=== PATIENT | female | born 1995 | race Caucasian/White ===

== ENCOUNTER 2016-08-25 08:51 | Emergency (ER) | payer BC ==
[2016-08-25] MEDS ORDERED: NS 0.9% 1000 ML* 1,000 ML IV ONE (09:24)
[2016-08-25 10:03] LABS: Hematocrit 41 % (35-47); Hemoglobin 13.7 g/dl (12.0-16.0); Mean Corpuscular HGB Conc 34 g/dl (31-36); Mean Corpuscular Hemoglobin 30 pg (27-31); Mean Corpuscular Volume 91 fL (80-97); Mean Platelet Volume 8 um3 (7.4-10.4); Red Blood Count 4.51 10^6/ul (4.0-5.4); Red Cell Distribution Width 13 % (10.5-15); White Blood Count 8.4 10^3/ul (3.5-10.8)
[2016-08-25 10:05] LABS: Urine Bilirubin Negative (Negative); Urine Glucose Negative (Negative); Urine Nitrite Negative (Negative)
[2016-08-25 10:17] LABS: ALT 11 U/L (7-52); AST 15 U/L (13-39); Albumin 4.9 g/dL (3.2-5.2); Alkaline Phosphatase 50 U/L (34-104); Anion Gap 6 mmol/L (2-11); BUN/Creatinine Ratio 19.2 (8-20); Blood Urea Nitrogen 14 mg/dL (6-24); CO2 Carbon Dioxide 25 mmol/L (22-32); Calcium 9.6 mg/dL (8.6-10.3); Chloride 103 mmol/L (101-111); EGFR African American 132.1 (>60); EGFR Non-African American 102.7 (>60); Globulin 2.8 g/dL (2-4); Glucose 90 mg/dL (70-100); Potassium 3.5 mmol/L (3.5-5.0); Sodium 134 mmol/L (133-145); Total Protein 7.7 g/dL (6.4-8.9)
--- NOTE | 2016-08-25 10:21 | ED ---
Syncope/Near Syncope - HPI Summary HPI Summary: Pt here w/ syncope this morning - was watching her boyfriend vomit and this caused her to be "queesy" - vision went dark and "passed out". Was able to recover fairly well and when she did, they decided to take him to the ED. As she and her boyfriend were walking out the door, she "passed out" again and landed in the snow. She was able to get up again and they decided it would not be safe for either of them to drive, so they headed back inside to call an ambulance. As they did this, the pt felt disoriented and hit herself in the face with the door. She has a small cut on her Lt eyelid. Denies change in vision, nausea, neck pain, GEORGES, dental/oral trauma, dizziness, numbness, weakness , N/V/D. Admits she hasn't had anything to eat or drink this morning. She has been dealing w/ dizziness the past few months and this has been worked up by her ENT - recent CT scan shows retention cyst but "nothing significant". She was advised to try nasal spray for a distal polyp but it was decided this was from her hormone PO control. control was switched by PCP and she is supposed to f/u to decide if she is able to tolerate this form of control any longer. She is taking this to prevent and help with acne. Denies h/o heavy vaginal bleeding, irregular periods, ovarian cysts. LMP was around Kristine. Mom has a h/o developing clots in her arm when she was on hormone based control when she was younger. Pt did travel to [place] recently. Denies smoking, h/o cancer, clots herself. URI last week w/ diarrhea - no caffeine. - History Of Current Complaint Chief Complaint: EDSyncope Time Seen by Provider: 08/25/16 09:03 Hx Obtained From: Patient, Family/Cow Buyer - mom - Allergies/Home Medications Allergies/Adverse Reactions: Allergies Allergy/AdvReac Type Severity Reaction Status Date / Time No Known Allergies Allergy Verified 02/19/16 09:40 PMH/Surg Hx/FS Hx/Imm Hx Previously Healthy: Yes Endocrine/Hematology History: Denies: Hx Anticoagulant Therapy, Hx Blood Disorders, Hx Thyroid Disease, Hx Unexplained Bleeding, Hx Coagulopothy Cardiovascular History: Reports: Other Cardiovascular Problems/Disorders - "dizziness" past few months Denies: Hx Congenital Heart Disease Respiratory History: Denies: Hx Pulmonary Embolism GI History: Denies: Hx Gastrointestinal Bleed Musculoskeletal History: Reports: Hx Bursitis - RIGHT SHOULDER -EXERCISES Sensory History: Denies: Hx Contacts or Glasses, Hx Hearing Aid Opthamlomology History: Denies: Hx Contacts or Glasses Psychiatric History: Reports: Hx Anxiety - no meds, Hx Depression - no meds Denies: Hx Eating Disorder - Surgical History Surgery Procedure, Year, and Place: WISDOM TEETH EXTRACTION 2013 -DR. GILBERT Gonzales Anesthesia Reactions: No Infectious Disease History: No Infectious Disease History: Denies: Traveled Outside the [place] in Last 30 Days - Family History Known Family History: Positive: Cardiac Disease, Hypertension, Other - cancer, coagulopathy - Social History Lives: With Family Alcohol Use: Occasionally - not recently Hx Substance Use: No Substance Use Type: Reports: None. Denies: Excessive Caffeine Hx Tobacco Use: No Smoking Status (MU): Never Smoked Tobacco Review of Systems Positive: Fatigue. Negative: Fever, Chills Negative: Photophobia, Blurred Vision, Diplopia, Drainage, Erythema ENT: Other - see HPI Negative: Dental Pain Negative: Chest Pain Negative: Shortness Of Breath, Cough Positive: Nausea - see HPI. Negative: Abdominal Pain, Vomiting, Diarrhea Positive: no symptoms reported Negative: Arthralgia, Myalgia Skin: Other - see HPI Neurological: Negative Psychological: Normal All Other Systems Reviewed And Are Negative: Yes Physical Exam Triage Information Reviewed: Yes Vital Signs On Initial Exam: Initial Vitals Temp Pulse Resp BP Pulse Ox 98.6 F 75 20 104/62 100 08/25/16 08:54 08/25/16 08:54 08/25/16 08:54 08/25/16 08:54 08/25/16 08:54 Vital Signs Reviewed: Yes Appearance: Positive: Well-Appearing, No Pain Distress, Thin Skin: Positive: Warm, Dry - o.25cm abrasion/laceration over Lt superior palpebra - no active bleeding, mild surrounding ecchymosis w/ edema Head/Face: Positive: Normal Head/Face Inspection - sinuses NTTP; no asymmetry, no laxity w/ palpation Eyes: Positive: Normal, EOMI - no pain ellicited w/ eye movements, CANDICE, Conjunctiva Clear ENT: Positive: Hearing grossly normal, Pharynx normal, TMs normal - no hemotympanum. Negative: Nasal congestion - mucosal polyp inside Rt nares, Nasal drainage Dental: Negative: Dental Fracture @ Neck: Positive: Supple, Nontender Respiratory/Lung Sounds: Positive: Clear to Auscultation, Breath Sounds Present. Negative: Rales, Rhonchi, Stridor, Tracheal Deviation, Wheezes Cardiovascular: Positive: Normal, RRR, Pulses are Symmetrical in both Upper and Lower Extremities, S1, S2 Abdomen Description: Positive: Nontender, Soft. Negative: Pulsatile Mass Bowel Sounds: Positive: Present Musculoskeletal: Positive: Normal, Strength/ROM Intact Neurological: Positive: Normal, Sensory/Motor Intact, Alert, Oriented to Person Place, Time, CN Intact II-III, Reflexes Intact, Normal Gait, Finger to Nose. Negative: Facial Droop, Slurred Speech, Lupillo-[place] Test, Pronator Drift Present Psychiatric: Positive: Normal Procedures - Laceration/Wound Repair 1 Location: face Description: Linear Length, Depth and Shape: 0.25cm x 1mm Betadine Prep?: No - wound and surrounding skin cleaned w/ antiseptic spray and alcohol Laceration/Wound Explored: clean Closure: Skin Adhesive Diagnostics - Vital Signs Vital Signs Temp Pulse Resp BP Pulse Ox 08/25/16 08:54 98.6 F 75 20 104/62 100 - Laboratory Result Diagrams: 08/25/16 09:50 08/25/16 09:50 Lab Statement: Any lab studies that have been ordered have been reviewed, and results considered in the medical decision making process. Re-Evaluation - Re-Evaluation First Eval Change: Improved - s/p iv fluids Course/Dx Course Of Treatment: Pt appears to have had multiple syncopal/near-syncopal episodes this morning d/t vasovagal response in the face of hypoglycemia. She may also have had orthostatic hypotension and she's thin, tall and has a naturally low BP. SHe does not appear to have sustained a major head injury today but does hvae a minor Lt eyelid abrasion/laceration which is alrady showing signs of edema and ecchymosis - suspect this will not cause ocular issues as long as she ices and takes NSAID's - she will also avoid aggravation ( ie. wearing make-up etc). Advised better nutrition and close f/u w/ PCP to monitor sx. Reviewed danger s/sx of when to return to ED. Pt, mom and BF voice understanding and agree w/ plan. - Diagnoses Provider Diagnoses: Syncope, Hypotension, Facial laceration Discharge - Discharge Plan Condition: Stable Disposition: HOME Patient Education Materials: Syncope (ED), Hypotension (ED), Skin Adhesive Care (ED), Facial Laceration (ED) Referrals: Jelly Hart MD [Primary Care Provider] - Additional Instructions: Keep wound clean and dry - you may rinse but do not soak or scrub. Pat dry. Monitor for signs or symptoms of infection. Follow-up with PCP for wound check in 5 days. Your cause of syncope today appears to be vasovagal response in conjunction with low fluid volume from recent illness. It is advised that you stay hydrated , eat balanced meals throughout the day, consume regular or even above normal salt, and transition slowly from lying to sitting to standing to avoid orthostatic hypotension episodes. It is advised that you rest today to allow for recovery from today's events. Although some tests were performed today to asses your symptoms, it is important that you follow-up woth PCP to continue assessing the cause of your dizziness. If you feel better with lifestyle changes mentioned above, pass this along. If not, more investigation needs to be done. *If you develop a headache, change in vision, vomiting, neck pain, chest pain, shortness of breath, numbness, weakness, return to ED
[2016-08-25 12:04] VITALS: BP 107/62
== END 2016-08-25 12:35 | disposition home or self-care (01) ==
LOC: ED 08:51
DX: R55 Syncope and collapse (principal); R42 Dizziness and giddiness; R11.0 Nausea
CPT/HCPCS: 36415; 80053; 81003; 83605; 83735; 84443; 84484; 84702; 85025; 85379; 85610; 85730; 93005; 96360; 99283

== ENCOUNTER 2016-09-24 10:57 | Emergency (ER) | payer BC ==
[2016-09-24 11:11] VITALS: BP 107/74
--- NOTE | 2016-09-24 11:48 | UC ---
Respiratory Complaint HPI - HPI Summary HPI Summary: Started last with nasal congestion. Worsened on Monday and Monday with copious yellow/green mucus and lethargy. Boyfriend is sick with similar symptoms. Possible fever on Monday but none since. Now complaining of sinus pain and dental pain. - History of Current Complaint Chief Complaint: UCRespiratory Stated Complaint: SINUS COMPLAINT Time Seen by Provider: 09/24/16 11:14 Hx Obtained From: Patient Hx Last Menstrual Period: 09/21/16 ?: No Onset/Duration: Gradual Onset, Lasting Weeks Severity Initially: Mild Severity Currently: Moderate Aggravating Factors: Nothing Alleviating Factors: OTC Meds Associated Signs And Symptoms: Positive: Fever, Nasal Congestion, Sinus Discomfort. Negative: Dyspnea, Chills, Pleuritic Chest Pain, Wheezing, Hemoptysis - Allergies/Home Medications Allergies/Adverse Reactions: Allergies Allergy/AdvReac Type Severity Reaction Status Date / Time No Known Allergies Allergy Verified 02/19/16 09:40 Home Medications: Home Medications Eth Estradiol/Drospirenone(NF) [[place] 28(NF)] 1 tab PO 09/24/16 [History] PMH/Surg Hx/FS Hx/Imm Hx Previously Healthy: Yes Endocrine History Of: Denies: Diabetes, Thyroid Disease Cardiovascular History Of: Denies: Cardiac Disorders, Hypertension Respiratory History Of: Denies: COPD, Asthma, Pulmonary Embolism GI/ History Of: Denies: Ulcer, Gastrointestinal Bleed Psychological History Of: Reports: Anxiety - no meds, Depression - no meds Other History Of: Negative For: Anticoagulant Therapy - Surgical History Surgical History: Yes Surgery Procedure, Year, and Place: WISDOM TEETH EXTRACTION 2013 -DR. HUNT, [facility] - Family History Known Family History: Positive: Unknown, Cardiac Disease, Hypertension, Other - cancer, coagulopathy - Social History Occupation: Employed Part-time, Student Alcohol Use: Weekly Substance Use Type: None Smoking Status (MU): Never Smoked Tobacco Review of Systems Constitutional: Negative Skin: Negative Eyes: Negative ENT: Dental Pain, Nasal Discharge Respiratory: Shortness Of Breath - with exertion Cardiovascular: Negative Gastrointestinal: Negative Genitourinary: Negative Motor: Negative Neurovascular: Negative Musculoskeletal: Negative Neurological: Negative Psychological: Negative All Other Systems Reviewed And Are Negative: Yes Physical Exam Triage Information Reviewed: Yes Appearance: Well-Appearing, No Pain Distress, Well-Nourished Vital Signs: Initial Vital Signs Temp 97.8 F 09/24/16 11:06 Pulse 91 09/24/16 11:06 Resp 18 09/24/16 11:06 BP 107/74 09/24/16 11:06 Pulse Ox 98 09/24/16 11:06 Vital Signs Reviewed: Yes Eye Exam: Normal Eyes: Positive: Conjunctiva Clear ENT: Positive: Normal ENT inspection, Pharynx normal, Nasal congestion, Nasal drainage - yellow, TMs normal. Negative: Tonsillar swelling, Tonsillar exudate Dental Exam: Normal Neck exam: Normal Neck: Positive: Supple, Nontender, No Lymphadenopathy Respiratory Exam: Normal Respiratory: Positive: Chest non-tender, Lungs clear, Normal breath sounds, No respiratory distress, No accessory muscle use Cardiovascular Exam: Normal Cardiovascular: Positive: RRR, No Murmur Musculoskeletal Exam: Normal Musculoskeletal: Positive: Strength Intact Neurological Exam: Normal Neurological: Positive: Alert, Muscle Tone Normal Psychological Exam: Normal Psychological: Positive: Normal Response To Family Skin Exam: Normal UC Diagnostic Evaluation - Laboratory O2 Sat by Pulse Oximetry: 98 Respiratory Course/Dx - Course Course Of Treatment: Most likely a sinusitis following a viral infection. We will call in Augmentin but have encouraged the patient to wait 2-3 days. If symptoms improve, she does not need the antibiotic. Take Ibuprofen as needed for dental pain. - Differential Dx/Diagnosis Differential Diagnosis/HQI/PQRI: Influenza, Sinusitis Provider Diagnoses: Rhinosinusitis - Physician Notification/Consults Discussed Patient Care With: We will call in an antibiotic but have encouraged the patient to wait 2-3 days. If symptoms do not improve and continue to worsen , we encouraged her to take the antibiotic for its full course. She may take Ibuprofen as needed for sinus pain. Follow-up with doctor or return if no improvement in 7 days. Discharge - Discharge Plan Condition: Stable Disposition: HOME Prescriptions: Amoxicillin/Clavulanate TAB* [Augmentin TAB 875*] 875 mg PO BID #14 tab Patient Education Materials: Rhinosinusitis (ED) Print Language: CROATIAN Referrals: Jelly Hart MD [Primary Care Provider] - Additional Instructions: This is most likely a sinusitis following a viral infection. If the current symptoms continue to worsen over the next two to three days, you are encouraged to take the antibiotic for the full week. If symptoms improve, the antibiotic is not needed. Drink plenty of fluids and take Ibuprofen as needed for sinus pain. Call your doctor or return if there is no improvement in 7 days.
== END 2016-09-24 11:49 | disposition home or self-care (01) ==
LOC: UCEAST 10:57
DX: J32.9 Chronic sinusitis, unspecified (principal)
CPT/HCPCS: 99212; G0463

== ENCOUNTER 2017-08-13 09:55 | Emergency (ER) | payer BC | END 2017-08-13 10:20 | disposition left against medical advice (07) | LOC: UCEAST 09:55 | DX: Z53.21 Procedure and treatment not carried out due to patient leaving prior to being seen by health care provider (principal) ==

== ENCOUNTER 2018-08-24 10:29 | Emergency (ER) | payer BC ==
[2018-08-24 10:46] VITALS: BP 103/47
--- NOTE | 2018-08-24 12:29 | UC ---
FLU HPI - HPI Summary HPI Summary: 22 yo female presents with fatigue, body aches, sinus congestion, and dry cough since last night. She has not taken anything OTC for her symptoms. Has felt hot/ cold, but has not taken her temperature. Denies SOB, chest pain, abdominal pain , n/v, dysuria. - History of Current Complaint Chief Complaint: UCGeneralIllness Stated Complaint: CONGESTION,SINUS COMPLAINT Time Seen by Provider: 08/24/18 12:25 Hx Obtained From: Patient Hx Last Menstrual Period: iud Onset/Duration: Sudden Onset Severity Currently: Moderate Severity Initially: Moderate Pain Intensity: 5 Pain Scale Used: 0-10 Numeric - Allergy/Home Medications Allergies/Adverse Reactions: Allergies Allergy/AdvReac Type Severity Reaction Status Date / Time No Known Allergies Allergy Verified 08/24/18 10:47 Home Medications: Home Medications Verapamil HCl [Verapamil ER] 240 mg PO DAILY 08/24/18 [History Confirmed ] PMH/Surg Hx/FS Hx/Imm Hx Psychological History: Anxiety Other History Of: Negative For: Anticoagulant Therapy - Surgical History Surgical History: Yes Surgery Procedure, Year, and Place: WISDOM TEETH EXTRACTION 2013 -DR. HUNT,. T &A; - Family History Known Family History: Positive: Cardiac Disease, Hypertension, Other - cancer, coagulopathy - Social History Occupation: Student Lives: Dormitory/Roommates Alcohol Use: Weekly Substance Use Type: None Smoking Status (MU): Never Smoked Tobacco Review of Systems All Other Systems Reviewed And Are Negative: Yes Constitutional: Positive: Fever, Fatigue, Other - Body aches Skin: Positive: Negative Eyes: Positive: Negative ENT: Positive: Nasal Discharge Respiratory: Positive: Cough Cardiovascular: Positive: Negative Gastrointestinal: Positive: Negative Neurovascular: Positive: Negative Neurological: Positive: Negative Psychological: Positive: Negative Physical Exam - Summary Physical Exam Summary: GENERAL: NAD. WDWN. No pain distress. SKIN: No rashes, sores, lesions, or open wounds. HEENT: Head: AT/NC Eyes: EOM intact. Conjunctiva clear without inflammation or discharge. Ears: Hearing grossly normal. TMs intact, no bulging, erythema, or edema. Nose: Nasal mucosa pink and moist. NTTP maxillary and frontal sinus. Throat: Posterior oropharynx without exudates, erythema, or tonsillar enlargement. Uvula midline. NECK: Supple. Nontender. No lymphadenopathy. CHEST: CTAB. No r/r/w. No accessory muscle use. Breathing comfortably and in no distress. CV: RRR. Without m/r/g. Pulses intact. Cap refill <2seconds NEURO: Alert. PSYCH: Age appropriate behavior. Triage Information Reviewed: Yes Vital Signs: Initial Vital Signs Temp 100.3 F 08/24/18 10:44 Pulse 100 08/24/18 10:44 Resp 20 08/24/18 10:44 BP 103/47 08/24/18 10:44 Pulse Ox 99 08/24/18 10:44 Laboratory Tests 08/24/18 13:02 Influenza A (Rapid) Positive A Vital Signs Reviewed: Yes Flu Course/Dx - Course Course Of Treatment: POC flu positive. Rx for tamiflu. Advised to take tylenol/ ibuprofen for discomfort and mucinex for congestion. F/u if symptoms do not improve. - Differential Dx/Diagnosis Provider Diagnosis: Influenza Discharge - Sign-Out/Discharge Documenting (check all that apply): Patient Departure All imaging exams completed and their final reports reviewed: No Studies - Discharge Plan Condition: Stable Disposition: HOME Prescriptions: Oseltamivir CAP* [Tamiflu CAP*] 75 mg PO BID #10 cap Patient Education Materials: Influenza (ED) Forms: *School Release, *Work Release Referrals: No Primary Care Phys,NOPCP [Primary Care Provider] - Additional Instructions: If you develop a fever, shortness of breath, chest pain, new or worsening symptoms - please call your PCP or go to the ED. - Billing Disposition and Condition Condition: STABLE Disposition: Home
[2018-08-24 13:07] LABS: Influenza A Molecular POSITIVE (Negative)
== END 2018-08-24 13:25 | disposition home or self-care (01) ==
LOC: UCEAST 10:29
DX: J11.1 Influenza due to unidentified influenza virus with other respiratory manifestations (principal)
CPT/HCPCS: 99212; G0463

== ENCOUNTER 2019-09-15 14:19 | Emergency (ER) | payer BC ==
[2019-09-15 15:24] VITALS: BP 99/61
[2019-09-15] MEDS ORDERED: Ibuprofen TAB* 600 MG PO ONE (15:31)
[2019-09-15 15:55] LABS: Influenza A Molecular Negative (Negative); Influenza B Molecular Negative (Negative)
--- NOTE | 2019-09-15 16:05 | UC ---
FLU HPI - HPI Summary HPI Summary: 24-year-old woman comes in with influenza symptoms started today. Had a fairly rapid onset of fever chills body aches headaches nausea cough with mild chest congestion. She's not taken any [id number] medications. Here in clinic she was noted to have a fever of 104 and was given ibuprofen which did help improve the symptoms. No urinary symptoms. No complaint of sore throat. - History of Current Complaint Chief Complaint: UCGeneralIllness Stated Complaint: flu like symptoms Time Seen by Provider: 09/15/19 15:39 Hx Last Menstrual Period: Pain Intensity: 6 - Allergy/Home Medications Allergies/Adverse Reactions: Allergies Allergy/AdvReac Type Severity Reaction Status Date / Time No Known Allergies Allergy Verified 09/15/19 15:24 Home Medications: Home Medications Verapamil HCl [Verapamil ER] 240 mg PO DAILY 08/24/18 [History Confirmed ] Amoxicillin PO (*) [Amoxicillin 875 MG (*)] 875 mg PO BID #20 tab 09/15/19 [Rx] Oseltamivir CAP* [Tamiflu CAP*] 75 mg PO BID #10 cap 09/15/19 [Rx] PMH/Surg Hx/FS Hx/Imm Hx Previously Healthy: Yes Other History Of: Negative For: Anticoagulant Therapy - Surgical History Surgical History: Yes Surgery Procedure, Year, and Place: WISDOM TEETH EXTRACTION 2013 -DR. HUNT,. T &A; - Family History Known Family History: Positive: Unknown, Cardiac Disease, Hypertension, Other - cancer, coagulopathy - Social History Alcohol Use: Weekly Substance Use Type: None Smoking Status (MU): Never Smoked Tobacco Review of Systems All Other Systems Reviewed And Are Negative: Yes Constitutional: Positive: Fever, Chills, Other - SEE HPI Skin: Positive: Negative Eyes: Positive: Negative ENT: Positive: Nasal Discharge Respiratory: Positive: Cough Cardiovascular: Positive: Negative Gastrointestinal: Positive: Negative Genitourinary: Positive: Negative Motor: Positive: Negative Neurovascular: Positive: Negative Musculoskeletal: Positive: Myalgia Neurological/Mental Status: Positive: Headache Psychological: Positive: Negative Is Patient Immunocompromised?: No Physical Exam Triage Information Reviewed: Yes Appearance: No Pain Distress, Well-Nourished, Ill-Appearing - MILD Vital Signs: Initial Vital Signs Temp 104.7 F 09/15/19 15:18 Pulse 108 09/15/19 15:18 Resp 18 09/15/19 15:18 BP 99/61 09/15/19 15:18 Pulse Ox 99 09/15/19 15:18 Vital Signs Reviewed: Yes Eye Exam: Normal Eyes: Positive: Conjunctiva Clear ENT: Positive: Pharynx normal, Nasal congestion, Nasal drainage, TMs normal Neck: Positive: Supple Respiratory: Positive: Lungs clear, Normal breath sounds, No respiratory distress Cardiovascular: Positive: RRR Musculoskeletal: Positive: Strength Intact, ROM Intact Neurological: Positive: Alert, Muscle Tone Normal Psychological: Positive: Normal Response To Family, Age Appropriate Behavior Skin Exam: Normal Flu Course/Dx - Course Course Of Treatment: Patient has an influenza-like illness and will treat with Tamiflu. Patient sore throat is report is mild. No strep test done here. I discussed with the patient that if she continued to have sore throat or symptoms are not improved that she should start amoxicillin. Therefore sent a prescription for amoxicillin. Patient's to get reevaluated if not improving or worse or any other questions or concerns. - Differential Dx/Diagnosis Provider Diagnosis: Influenza-like illness Discharge ED - Sign-Out/Discharge Documenting (check all that apply): Patient Departure All imaging exams completed and their final reports reviewed: No Studies - Discharge Plan Condition: Stable Disposition: HOME Prescriptions: Amoxicillin PO (*) [Amoxicillin 875 MG (*)] 875 mg PO BID #20 tab Oseltamivir CAP* [Tamiflu CAP*] 75 mg PO BID #10 cap Patient Education Materials: Influenza (ED) Forms: *Work Release Referrals: Shayy Larson MD [Primary Care Provider] - Additional Instructions: FOLLOW UP WITH YOUR DOCTOR IF NOT COMPLETELY IMPROVED. GET REEVALUATED SOONER IF NOT IMPROVED OR WORSE OR ANY QUESTIONS OR CONCERNS. - Billing Disposition and Condition Condition: STABLE Disposition: Home
== END 2019-09-15 16:12 | disposition home or self-care (01) ==
LOC: UCEAST 14:19
DX: J02.9 Acute pharyngitis, unspecified (principal); R09.89 Other specified symptoms and signs involving the circulatory and respiratory systems; M79.10 Myalgia, unspecified site; R51 Headache; R05 Cough; R11.0 Nausea; R50.9 Fever, unspecified
CPT/HCPCS: 99212; A9270-GY; G0463